=== PATIENT | male | born 1965 | race Caucasian/White ===

== ENCOUNTER 2018-06-19 07:09 | Day surgery (SDC) | payer OTHER ==
[2018-06-13 11:13] VITALS: BMI 30.4
[2018-06-19] MEDS ORDERED: MIDAZOLAM HCL 2 MG/2 ML SINGLE DOSE VIAL ONE (08:25)
[2018-06-19] MEDS ORDERED: oxyCODONE HCL 5 MG TABLET PO PRN ×2 (08:27)
[2018-06-19] MEDS ORDERED: ACETAMINOPHEN 325 MG TABLET (FP) PO PRN (08:27)
[2018-06-19] MEDS ORDERED: LACTATED RINGERS SOLUTION 1,000 ML IV SCH (08:30)
[2018-06-19] MEDS ORDERED: PROPOFOL 20 ML ONE ×4 (09:04→09:32)
[2018-06-19] MEDS ORDERED: DEXAMETHASONE SOD PHOSPHATE 4 MG/1 ML VIAL ONE (09:22)
[2018-06-19] MEDS ORDERED: ONDANSETRON 4 MG/2 ML VIAL ONE (09:22)
[2018-06-19] MEDS ORDERED: BUPIVACAINE HCL/PF 0.25% (2.5MG/ML) 10 ML VIAL IJ ONE (10:21)
[2018-06-19] MEDS ORDERED: KETOROLAC TROMETHAMINE 30 MG/1 ML VIAL ONE (10:52)
[2018-06-19] MEDS ORDERED: oxyCODONE HCL 5 MG TABLET ONE ×2 (12:24→12:26)
[2018-06-19 13:25] VITALS: BP 126/74; PULSE 66; TEMP 97.6
--- NOTE | 2018-06-20 11:11 | OP ---
DATE OF OPERATION: 06/19/2018 PREOPERATIVE DIAGNOSIS: Right ulnar neuropathy at elbow. POSTOPERATIVE DIAGNOSIS: Right ulnar neuropathy at elbow. OPERATIVE PROCEDURE: Right ulnar nerve decompression at elbow with subcutaneous transposition. SURGEON: Cristobal Ba MD SUPERINTENDENT COMMISSARY: RICKI Joseph ANESTHESIA: General. COMPLICATIONS: None. ESTIMATED BLOOD LOSS: Minimal. INDICATIONS FOR PROCEDURE: The patient is a 52-year-old male with the above findings including severe findings of ulnar neuropathy with atrophy and numbness of the hand. He is indicated for operative treatment with the understanding that this may not get better. DESCRIPTION OF PROCEDURE: After proper identification of the patient and the correct operative site, the patient was brought to the operating room and placed supine on the operating table with prominences well padded. General anesthesia was given. Right upper extremity was prepped and draped in the usual sterile fashion. A curvilinear incision was made over the posterior medial aspect of the elbow. Incision was taken sharply through the skin with blunt and sharp dissection through subcutaneous tissues, carefully protecting crossing sensory nerves. Ulnar nerve was identified proximally and traced from a proximal to distal direction from the intermuscular septum all the way into the and past the 2 heads of the flexor carpi ulnaris muscle. Just distal to the cubital tunnel at the insertion into the 2 heads of the flexor carpi ulnaris fascia, there was severe compression on the nerve found. Hour-glass configuration of the nerve was noted with a loss of the normal sheen of the nerve. However, continuity. Elbow was then flexed and extended, and there was subluxation of the nerve. No bone spurs were found. It was then decided to transpose the ulnar nerve, and a subcutaneous pocket anterior to the medial epicondyle was bluntly crafted, and the nerve was then transposed and held with a fascial sling of wide breadth. Elbow was taken through a range of motion, and there was no further compression, and there was normal tendon lining. Of note, a section of the medial intermuscular septum was resected to prevent impingement in this area. The wound was then irrigated and repaired in layers, and the patient was reversed from anesthesia and brought to the recovery room in stable condition. Huy Randolph, the assistant professor of art, was integral throughout the procedure. Procedure could not have been performed without a skilled operative assistant professor of art. CRISTOBAL BA M.D. [id number]
== END 2018-06-19 13:15 | disposition home or self-care (01) ==
LOC: FASU 07:09
PROVIDERS: ATTEND Orthopaedic Surgery Hand Surgery
PROC: 01N40ZZ Release Ulnar Nerve, Open Approach (ICD-10-PCS; principal; 2018-06-19 09:00)
DX: G56.21 Lesion of ulnar nerve, right upper limb (principal)
CPT/HCPCS: 94760